=== PATIENT | male | born 1970 | race Caucasian/White ===

== ENCOUNTER 2017-02-02 04:08 | Emergency (ER) | payer MEDICAID ==
[~2017-02-02] VITALS: Ht 180.3 cm; Wt 142.9 kg
[2017-02-02 04:10] VITALS: BP_SYST 156
[2017-02-02] MEDS ORDERED: KETOROLAC TROMETHAMINE 60 MG/2 ML VIAL IM ONE (04:45)
[2017-02-02 05:33] LABS: BILIRUBIN,URINE NEGATIVE (NEGATIVE); BLOOD, URINE TRACE (NEGATIVE); CLARITY/URINE CLEAR (CLEAR); COLOR,URINE YELLOW (YELLOW); GLUCOSE,URINE NEGATIVE (NEGATIVE); KETONES,URINE NEGATIVE (NEGATIVE); LEUKOCYTE ESTERASE ,URINE NEGATIVE (NEGATIVE); NITRITE, URINE NEGATIVE (NEGATIVE); PH,URINE 5.5 (5.0-8.0); PROTEIN URINE NEGATIVE (NEGATIVE); UROBILINOGEN,URINE 0.2 (0.2-1.0)
[2017-02-02 05:35] LABS: BACTERIA,URINE MODERATE /HPF (None Seen); RBC,URINE 0-3 /HPF (0-3); WBC,URINE 0-3 /HPF (0-3)
[2017-02-02 05:36] LABS: MUCUS,URINE 1+ /LPF (None Seen)
[2017-02-02 06:00] VITALS: BP_SYST 153
== END 2017-02-02 06:00 | disposition home or self-care (01) ==
LOC: SED 04:08
DX: S39.012A Strain of muscle, fascia and tendon of lower back, initial encounter (principal); I10 Essential (primary) hypertension; Z87.891 Personal history of nicotine dependence; Z88.1 Allergy status to other antibiotic agents; X58.XXXA Exposure to other specified factors, initial encounter; Y93.89 Activity, other specified; Y92.89 Other specified places as the place of occurrence of the external cause; Y99.8 Other external cause status
CPT/HCPCS: 72170; 72202; 81000; 87086; 96372; 99285; J1885

== ENCOUNTER 2019-04-07 10:34 | Emergency (ER) | payer MEDICAID ==
[~2019-04-07] VITALS: Ht 180.3 cm; Wt 172.4 kg
[2019-04-07 10:55] VITALS: BP_SYST 143
--- NOTE | 2019-04-07 10:55 | NUR ---
Patient to ER bed 04 to gown for evaluation. Side rails up.
[2019-04-07] MEDS ORDERED: MORPHINE 4 MG/ML INJ. SYRINGE IM ONE (11:00)
[2019-04-07] MEDS ORDERED: ONDANSETRON 4 MG ODT TAB PO ONE (11:00)
--- NOTE | 2019-04-07 11:05 | NUR ---
Patient taken to CT in stable condition.
--- NOTE | 2019-04-07 11:10 | NUR ---
ER at bedside examining patient.
--- NOTE | 2019-04-07 11:18 | NUR ---
4mg Morphine unavailable in pyxis. Overrode 10mg/1ml vial. Dr. Ely notified. okayed to change order.
--- NOTE | 2019-04-07 11:29 | NUR ---
Patient is back from CT, in stable condition.
[2019-04-07] MEDS ORDERED: MORPHINE SULFATE 10 MG/ML VIAL IM ONE (11:30)
[2019-04-07] MEDS ORDERED: MORPHINE SULFATE 10 MG/ML VIAL ONE (11:33)
[2019-04-07 13:18] VITALS: BP_SYST 155
--- NOTE | 2019-04-07 13:18 | NUR ---
Patient given written and verbal discharge instructions and verbalizes understanding. ER MD Ely discussed with patient the results and treatment provided. Patient in stable condition. ID arm band removed. Rx of Motrin, Zofran, [place] given. Patient educated on pain management and to follow up with PMD. Pain Scale 0. Opportunity for questions provided and answered. Medication side effect fact sheet provided.
== END 2019-04-07 13:18 | disposition home or self-care (01) ==
LOC: SED 10:34
DX: J44.9 Chronic obstructive pulmonary disease, unspecified (principal); M54.5 Low back pain
CPT/HCPCS: 72131; 72192; 96372; 99284; J2270; Q0162